=== PATIENT | male | born 1930 | race Caucasian/White ===

== ENCOUNTER 2017-09-30 11:26 | Emergency (ER) | payer MEDICARE, OTHER ==
--- NOTE | 2017-09-30 12:40 | CR ---
Clinical history: 86-year-old male pain right knee (fall one week ago). Interpretation: 3 views right knee reveal some soft tissue swelling and small suprapatellar bursal ef fusion (calcification in the quadriceps tendon proximally that was present on 29 November 2014). 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 No sign of acute right knee fracture or dislocation. CONCLUSION: Severe osteoarthritic degenerative changes. No fracture.
--- NOTE | 2017-09-30 12:59 | EDM.PDOC ---
ED HPI GENERAL MEDICAL PROBLEM - General Chief Complaint: Lower Extremity Injury/Pain Stated Complaint: AMBULANCE / KNEE PAIN Time Seen by Provider: 09/30/17 11:26 Source of Information: Reports: Patient, EMS, EMS Notes Reviewed, Alf Records, RN, RN Notes Reviewed History Limitations: Reports: Altered Mental Status - History of Present Illness INITIAL COMMENTS - FREE TEXT/NARRATIVE: Pt to ER per [facility] with c/o right knee pain. Patient states he fell last weekend on the knee. States he has had pain and swelling since then. [facility] an [facility] of 2 people recently. Patient is disoriented to place and time. Onset: Unknown/Unsure Right Knee Pain Score (Numeric/FACES): 5 - Related Data Allergies Allergy/AdvReac Type Severity Reaction Status Date / Time amoxicillin [Amoxicillin] Allergy Rash Verified 04/23/15 08:18 atenolol Allergy Hives Verified 04/23/15 08:18 Home Meds: Home Meds Doxazosin Mesylate 2 mg PO DAILY 07/12/13 [History] Furosemide 20 mg PO DAILY 07/12/13 [History] Sertraline HCl 100 mg PO DAILY 07/12/13 [History] Acetaminophen [Tylenol Extra Strength] 500 mg PO Q6H PRN 06/11/15 [History] Aspirin 325 mg PO DAILY 06/11/15 [History] Cyanocobalamin (Vitamin B-12) [B-12 Dots] 500 mcg PO DAILY 06/11/15 [History] Magnesium Hydroxide [Milk of Magnesia] 30 ml PO DAILY PRN 06/11/15 [History] Multivitamin [Multivitamins] 1 each PO DAILY 06/11/15 [History] Nystatin [Nystatin Crm] 30 gm TOP BID 06/11/15 [History] [place]-3/DHA/Epa/Fish Oil [[place]-3 Fish Oil 1,200 MG Sfgl] 1,200 mg PO DAILY [History] Omeprazole [Prilosec] 20 mg PO DAILY 06/11/15 [History] Sennosides/Docusate Sodium [Senna-S Tablet] 2 tab PO DAILY 06/11/15 [History] Finasteride [Proscar] 5 mg PO DAILY #30 tablet 08/04/15 [Rx] LORazepam [Ativan] 1 mg PO Q8H PRN #12 tablet 08/04/15 [Rx] Valsartan [Diovan] 160 mg PO DAILY #30 tablet 08/04/15 [Rx] Zolpidem [Ambien] 10 mg PO BEDTIME PRN #30 tablet 08/04/15 [Rx] amLODIPine Besylate [Amlodipine Besylate] 10 mg PO DAILY #30 tablet 08/04/15 [Rx ] oxyCODONE HCl/Acetaminophen [Percocet 5-325 mg Tablet] 1 each PO Q3H PRN #12 tablet 08/04/15 [Rx] Past Medical History HEENT History: Reports: Impaired Vision Other HEENT History: wears glasses Cardiovascular History: Reports: Hypertension Respiratory History: Reports: None Gastrointestinal History: Reports: GERD, Irritable Bowel Syndrome Other Gastrointestinal History: takes a med sometimes Genitourinary History: Reports: BPH, Prostate Disorder, Other (See Below) Other Genitourinary History: impaired fasting blood sugar Musculoskeletal History: Reports: Arthritis, Back Pain, Chronic, Osteoarthritis , Other (See Below) Other Musculoskeletal History: Right knee DJD Neurological History: Reports: None Psychiatric History: Reports: Anxiety, Depression Endocrine/Metabolic History: Reports: None Hematologic History: Reports: None Immunologic History: Reports: None Oncologic (Cancer) History: Reports: None Dermatologic History: Reports: None - Past Surgical History Head Surgeries/Procedures: Reports: None Musculoskeletal Surgical History: Reports: Other (See Below) Social & Family History - Family History Family Medical History: Noncontributory - Tobacco Use Smoking Status *Q: Never Smoker - Caffeine Use Caffeine Use: Reports: Coffee - Recreational Drug Use Recreational Drug Use: No - Living Situation & Occupation Living situation: Reports: Single, Alone Occupation: Retired Review of Systems - Review of Systems Review Of Systems: ROS reveals no pertinent complaints other than HPI. ED EXAM, GENERAL - Physical Exam Exam: See Below Exam Limited By: Altered Mental Status General Appearance: Alert, WD/WN, No Apparent Distress Eye Exam: Bilateral Eye: EOMI, Normal Inspection Ears: Normal External Exam, Hearing Grossly Normal Nose: Normal Inspection Throat/Mouth: Normal Inspection, Normal Voice, No Airway Compromise Head: Atraumatic, Normocephalic Neck: Normal Inspection Respiratory/Chest: No Respiratory Distress, Lungs Clear, Normal Breath Sounds, No Accessory Muscle Use, Chest Non-Tender Cardiovascular: Normal Peripheral Pulses, Regular Rate, Rhythm, No Edema, No Gallop, No JVD, No Murmur, No Rub Peripheral Pulses: 2+: Radial (L), Radial (R), Dorsalis Pedis (L), Dorsalis Pedis (R) GI/Abdominal: Normal Bowel Sounds, Soft, Non-Tender (Male) Exam: Deferred Rectal (Males) Exam: Deferred Back Exam: Normal Inspection, Decreased Range of Motion Extremities: Pedal Edema, Joint Swelling (right knee), Leg Pain (right), Limited Range of Motion (right leg) Neurological: Alert, Confused, Disoriented, Memory Loss Remote Events, Memory Loss Recent Events Psychiatric: Anxious Skin Exam: Warm, Dry, Intact, Normal Color, No Rash Lymphatic: No Adenopathy Course - Vital Signs Last Recorded V/S: Last Vital Signs Temp 98.3 F 09/30/17 13:22 Pulse 76 09/30/17 13:22 Resp 15 09/30/17 13:22 BP 117/54 L 09/30/17 13:22 Pulse Ox 98 09/30/17 13:22 - Radiology Interpretation Free Text/Narrative:: Right knee xray: Severe osteoarthritic degenerative changes. No fracture See rad report Departure - Departure Time of Disposition: 12:59 Disposition: DC/Tfer to [facility] Condition: Fair Clinical Impression: Sprain of knee Right knee pain Qualifiers: Chronicity: acute Qualified Code(s): M25.561 - Pain in right knee Osteoarthritis of knee Qualifiers: Osteoarthritis type: unspecified Laterality: right Qualified Code(s): M17.11 - Unilateral primary osteoarthritis, right knee - Discharge Information *PRESCRIPTION DRUG MONITORING PROGRAM REVIEWED*: No *COPY OF PRESCRIPTION DRUG MONITORING REPORT IN PATIENT CORETTA: No Instructions: Osteoarthritis, Knee Pain, Adult, [id number], Joint Pain, Easy- to-Read Forms: ED Department Discharge Additional Instructions: May heat or ice the area as tolerated Elevate and rest the leg Ambulate with assistance if tolerated Follow up with your primary care facility
[2017-09-30 13:22] VITALS: BP 117/54
== END 2017-09-30 14:30 ==
LOC: DL.ED 11:26
DX: S83.91XA Sprain of unspecified site of right knee, initial encounter (principal); I10 Essential (primary) hypertension; K21.9 Gastro-esophageal reflux disease without esophagitis; M17.11 Unilateral primary osteoarthritis, right knee; Z88.8 Allergy status to other drugs, medicaments and biological substances; Z88.1 Allergy status to other antibiotic agents; Z79.899 Other long term (current) drug therapy; W18.30XA Fall on same level, unspecified, initial encounter
CPT/HCPCS: 73562-RT; 99283; 99284

== ENCOUNTER 2017-09-30 17:33 | Emergency (ER) | payer MEDICARE, OTHER ==
[2017-09-30 17:59] VITALS: BP 141/60
--- NOTE | 2017-09-30 18:12 | EDM.PDOC ---
ED HPI GENERAL MEDICAL PROBLEM - General Time Seen by Provider: 09/30/17 18:11 Source of Information: Reports: Patient, EMS, EMS Notes Reviewed, Residential Records, RN, RN Notes Reviewed History Limitations: Reports: Altered Mental Status - History of Present Illness INITIAL COMMENTS - FREE TEXT/NARRATIVE: Patient here previously with only c/o pain to the right knee. DON at [facility] called and states the patient has right hip pain. This was not reported on the first visit, and the patient never c/o right hip pain upon assessment. Patient here per [facility] for a hip xray. Onset Date: 09/24/17 Location: Reports: Lower Extremity, Right Right Hip Pain Score (Numeric/FACES): 5 - Related Data Allergies Allergy/AdvReac Type Severity Reaction Status Date / Time amoxicillin [Amoxicillin] Allergy Rash Verified 04/23/15 08:18 atenolol Allergy Hives Verified 04/23/15 08:18 Home Meds: Home Meds Doxazosin Mesylate 2 mg PO DAILY 07/12/13 [History] Furosemide 20 mg PO DAILY 07/12/13 [History] Sertraline HCl 100 mg PO DAILY 07/12/13 [History] Acetaminophen [Tylenol Extra Strength] 500 mg PO Q6H PRN 06/11/15 [History] Aspirin 325 mg PO DAILY 06/11/15 [History] Cyanocobalamin (Vitamin B-12) [B-12 Dots] 500 mcg PO DAILY 06/11/15 [History] Magnesium Hydroxide [Milk of Magnesia] 30 ml PO DAILY PRN 06/11/15 [History] Multivitamin [Multivitamins] 1 each PO DAILY 06/11/15 [History] Nystatin [Nystatin Crm] 30 gm TOP BID 06/11/15 [History] [place]-3/DHA/Epa/Fish Oil [[place]-3 Fish Oil 1,200 MG Sfgl] 1,200 mg PO DAILY [History] Omeprazole [Prilosec] 20 mg PO DAILY 06/11/15 [History] Sennosides/Docusate Sodium [Senna-S Tablet] 2 tab PO DAILY 06/11/15 [History] Finasteride [Proscar] 5 mg PO DAILY #30 tablet 08/04/15 [Rx] LORazepam [Ativan] 1 mg PO Q8H PRN #12 tablet 08/04/15 [Rx] Valsartan [Diovan] 160 mg PO DAILY #30 tablet 08/04/15 [Rx] Zolpidem [Ambien] 10 mg PO BEDTIME PRN #30 tablet 08/04/15 [Rx] amLODIPine Besylate [Amlodipine Besylate] 10 mg PO DAILY #30 tablet 08/04/15 [Rx ] oxyCODONE HCl/Acetaminophen [Percocet 5-325 mg Tablet] 1 each PO Q3H PRN #12 tablet 08/04/15 [Rx] Past Medical History HEENT History: Reports: Impaired Vision Other HEENT History: wears glasses Cardiovascular History: Reports: Hypertension Respiratory History: Reports: None Gastrointestinal History: Reports: GERD, Irritable Bowel Syndrome Other Gastrointestinal History: takes a med sometimes Genitourinary History: Reports: BPH, Prostate Disorder, Other (See Below) Other Genitourinary History: impaired fasting blood sugar Musculoskeletal History: Reports: Arthritis, Back Pain, Chronic, Osteoarthritis , Other (See Below) Other Musculoskeletal History: Right knee DJD Neurological History: Reports: None Psychiatric History: Reports: Anxiety, Depression Endocrine/Metabolic History: Reports: None Hematologic History: Reports: None Immunologic History: Reports: None Oncologic (Cancer) History: Reports: None Dermatologic History: Reports: None - Past Surgical History Head Surgeries/Procedures: Reports: None Musculoskeletal Surgical History: Reports: Other (See Below) Social & Family History - Family History Family Medical History: Noncontributory - Caffeine Use Caffeine Use: Reports: Coffee - Living Situation & Occupation Living situation: Reports: Single, Alone Occupation: Retired Review of Systems - Review of Systems Review Of Systems: ROS reveals no pertinent complaints other than HPI. ED EXAM, GENERAL - Physical Exam Exam: See Below Exam Limited By: Altered Mental Status General Appearance: Alert, WD/WN, No Apparent Distress Eye Exam: Bilateral Eye: EOMI, Normal Inspection Ears: Normal External Exam, Hearing Grossly Normal Nose: Normal Inspection Throat/Mouth: Normal Inspection, Normal Voice, No Airway Compromise Head: Atraumatic, Normocephalic Neck: Normal Inspection, Supple, Non-Tender, Limited Range of Motion Respiratory/Chest: No Respiratory Distress, Lungs Clear, Normal Breath Sounds, No Accessory Muscle Use, Chest Non-Tender Cardiovascular: Normal Peripheral Pulses, Regular Rate, Rhythm, No Edema, No Gallop, No JVD, No Murmur, No Rub Peripheral Pulses: 2+: Radial (L), Radial (R), Dorsalis Pedis (L), Dorsalis Pedis (R) GI/Abdominal: Normal Bowel Sounds, Soft, Non-Tender, No Organomegaly, No Distention, Pelvis Stable. No: Tender (Male) Exam: Deferred Rectal (Males) Exam: Deferred Back Exam: Normal Inspection, Decreased Range of Motion Extremities: Leg Pain (right knee), Limited Range of Motion (right leg) Neurological: Alert, Confused, Disoriented Psychiatric: Anxious Skin Exam: Warm, Dry, Intact, Ecchymosis (Right lateral hip/upper leg, yellowing , old bruising) Lymphatic: No Adenopathy Course - Vital Signs Last Recorded V/S: Last Vital Signs Temp 98.8 F 09/30/17 17:58 Pulse 79 09/30/17 17:58 Resp 17 09/30/17 17:58 BP 141/60 H 09/30/17 17:58 Pulse Ox 97 09/30/17 17:58 - Radiology Interpretation Free Text/Narrative:: Right hip/pelvis xray: IMPRESSION: Fractured right femoral neck Coarsening of trabeculae in the right acetabulum and inferior pubic ramus which could indicate fibrous dysplasia or Paget's disease. Thank you for allowing us to participate in the care of your patient. Dictated and Authenticated by: Matthew Elizondo MD 09/30/2017 6:06 PM Central Time ([place] & [place]) See rad report Departure - Departure Time of Disposition: 18:51 Disposition: DC/Tfer to Acute Hospital 02 Condition: Fair Clinical Impression: Fracture of neck of femur, hip - Discharge Information *PRESCRIPTION DRUG MONITORING PROGRAM REVIEWED*: No *COPY OF PRESCRIPTION DRUG MONITORING REPORT IN PATIENT CORETTA: No Referrals: PCP,None [Primary Care Provider] - Forms: ED Department Discharge, Interfacility Transfer [facility]
== END 2017-09-30 18:53 ==
LOC: DL.DI 17:33 → DL.ED 17:33 → EDSTATUS 17:57 → DL.ED 18:53
DX: S72.001A Fracture of unspecified part of neck of right femur, initial encounter for closed fracture (principal); I10 Essential (primary) hypertension; K21.9 Gastro-esophageal reflux disease without esophagitis; F41.9 Anxiety disorder, unspecified; F32.9 Major depressive disorder, single episode, unspecified; Z88.8 Allergy status to other drugs, medicaments and biological substances; Z88.1 Allergy status to other antibiotic agents; Z79.899 Other long term (current) drug therapy; Z79.82 Long term (current) use of aspirin; W19.XXXA Unspecified fall, initial encounter
CPT/HCPCS: 72170; 99284